=== PATIENT | male | born 1980 | race American Indian/Alaskan Native ===

== ENCOUNTER 2022-04-03 10:34 | Emergency (ER) | payer OTHER ==
[~2022-04-03] VITALS: Ht 188 cm; Wt 136.1 kg
[~2022-04-03 10:34] MED LIST: VISTARIL50 MG PO
[2022-04-03] MEDS ORDERED: ONDANSETRON ODT8 MG PO (14:24)
== END 2022-04-03 14:49 | disposition home or self-care (01) ==
LOC: ED 10:34
DX: K52.9 Noninfective gastroenteritis and colitis, unspecified (principal); Z20.822 Contact with and (suspected) exposure to COVID-19
CPT/HCPCS: 36415; 80053; 85025; 87502; 96374; 99284-25; C9803; J2405; J7030; U0003